=== PATIENT | female | born 1950 | race Caucasian/White ===

== ENCOUNTER 2021-03-26 07:41 | Emergency (ER) | payer BC, MEDICAID ==
[~2021-03-26] VITALS: Ht 147.3 cm; Wt 72.7 kg
[~2021-03-26 07:41] MED LIST: ANTIHYPERTENSIVE PO; ASPI-1265 PO; LEDI1TAB PO; LEVO75TA7 PO; MAGN400C PO; POTA10TA19 PO
[2021-03-26] MEDS ORDERED: ibuprofen tablet 400 MG TABLET PO ONE (08:45)
[2021-03-26] MEDS ORDERED: acetaminophen 325mg tablet PO ONE (08:45)
--- NOTE | 2021-03-26 09:01 | NUR ---
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
[2021-03-26 09:31] VITALS: BP 134/102
== END 2021-03-26 09:35 | disposition home or self-care (01) ==
LOC: ER 07:41
DX: I83.891 Varicose veins of right lower extremity with other complications (principal); G89.29 Other chronic pain; M54.5 Low back pain; F41.9 Anxiety disorder, unspecified; F12.10 Cannabis abuse, uncomplicated; Z88.0 Allergy status to penicillin; Z88.5 Allergy status to narcotic agent; Z79.899 Other long term (current) drug therapy; Z98.51 Tubal ligation status
CPT/HCPCS: 93971; 99284

== ENCOUNTER 2021-04-25 23:01 | Emergency (ER) | payer BC, MEDICAID, OTHER ==
[~2021-04-25] VITALS: Ht 147.3 cm; Wt 72.7 kg
[2021-04-25 23:38] VITALS: BP 141/73
[2021-04-26] MEDS ORDERED: HYDROcodone/acetaminophen 5mg/325mg tablet PO ONE (00:45)
== END 2021-04-26 03:00 | disposition home or self-care (01) ==
LOC: ER 23:02
DX: M54.41 Lumbago with sciatica, right side (principal); G89.29 Other chronic pain; F41.9 Anxiety disorder, unspecified; F12.90 Cannabis use, unspecified, uncomplicated; Z90.49 Acquired absence of other specified parts of digestive tract; Z98.51 Tubal ligation status; Z90.89 Acquired absence of other organs; Z72.89 Other problems related to lifestyle; Z88.0 Allergy status to penicillin; Z88.5 Allergy status to narcotic agent; Z79.82 Long term (current) use of aspirin; Z79.899 Other long term (current) drug therapy
CPT/HCPCS: 72131; 99284

== ENCOUNTER 2021-08-11 14:44 | Emergency (ER) | payer BC, MEDICAID ==
[~2021-08-11] VITALS: Ht 144.8 cm; Wt 77.3 kg
[~2021-08-11 14:44] MED LIST changes: +POTA-192 PO; -POTA10TA19 PO
[2021-08-11 14:50] VITALS: BP 124/68
[2021-08-11] MEDS ORDERED: bacitracin 15gm ointment TP ONE (16:45)
[2021-08-11] MEDS ORDERED: LIDOcaine 1% W/epiNEPHrine 1:200,000 10ml vial IJ ONE (16:45)
== END 2021-08-11 18:49 | disposition home or self-care (01) ==
LOC: ER 14:44
DX: S81.011A Laceration without foreign body, right knee, initial encounter (principal); G89.29 Other chronic pain; Z90.49 Acquired absence of other specified parts of digestive tract; Z98.51 Tubal ligation status; F12.90 Cannabis use, unspecified, uncomplicated; Z72.89 Other problems related to lifestyle; Z88.0 Allergy status to penicillin; Z79.82 Long term (current) use of aspirin; Z79.899 Other long term (current) drug therapy; W01.0XXA Fall on same level from slipping, tripping and stumbling without subsequent striking against object, initial encounter; Y93.89 Activity, other specified; Y92.89 Other specified places as the place of occurrence of the external cause; Y99.8 Other external cause status
CPT/HCPCS: 12004; 36415; 80320; 96374; 99283; 99285

== ENCOUNTER 2024-05-17 08:39 | Outpatient (CLI) | payer MEDICARE, MEDICAID ==
[~2024-05-17] VITALS: Ht 147.3 cm; Wt 77.1 kg
[2024-05-17] MEDS: albuterol 2.5 MG/3 ML nebule NEB PRN (09:16)
[2024-05-17 09:17] VITALS: PULSE 94; RESP 18; O2SAT 92
[2024-05-17 09:34] VITALS: PULSE 90; RESP 18
== END 2024-05-17 23:59 | disposition home or self-care (01) ==
LOC: RT 08:39
PROVIDERS: ATTEND Student in an Organized Health Care Education/Training Program
DX: M19.012 Primary osteoarthritis, left shoulder (principal); M25.511 Pain in right shoulder; R06.02 Shortness of breath; I70.0 Atherosclerosis of aorta; M75.32 Calcific tendinitis of left shoulder
CPT/HCPCS: 71046; 73030; 94060; 94760

== ENCOUNTER 2025-05-22 11:16 | Outpatient (CLI) | payer MEDICARE, MEDICAID ==
--- NOTE | 2025-05-22 12:05 | RADIOLOGY REPORT ---
EXAM: DI KNEE, COMP 4 VW MIN CLINICAL INDICATION: RIGHT KNEE PAIN AND SWELLING TECHNIQUE: DI KNEE, COMP 4 VW MIN Comparison: None FINDINGS/IMPRESSION: There is no evidence of acute fracture or dislocation. Moderate right knee osteoarthritis The alignment is anatomical. There is no radiopaque foreign body.
== END 2025-05-22 23:59 | disposition home or self-care (01) ==
LOC: RAD 11:16
PROVIDERS: ATTEND Student in an Organized Health Care Education/Training Program
DX: M17.11 Unilateral primary osteoarthritis, right knee (principal); M25.561 Pain in right knee; M25.461 Effusion, right knee
CPT/HCPCS: 73564